=== PATIENT | male | born 1960 | race Caucasian/White ===

== ENCOUNTER 2018-01-25 15:18 | Emergency (ER) | payer OTHER ==
[~2018-01-25] VITALS: Ht 175.3 cm; Wt 72.6 kg
[2018-01-25 15:21] VITALS: Ht 175.3 cm; Wt 72.6 kg
[2018-01-25 16:42] VITALS: BP 161/94
== END 2018-01-25 16:52 | disposition home or self-care (01) ==
LOC: ED 15:18
DX: G89.29 Other chronic pain (principal); M25.551 Pain in right hip; M87.059 Idiopathic aseptic necrosis of unspecified femur; I10 Essential (primary) hypertension

== ENCOUNTER 2018-07-12 11:38 | Emergency (ER) | payer OTHER ==
[~2018-07-12] VITALS: Ht 172.7 cm; Wt 72.6 kg
[2018-07-12 11:49] VITALS: Ht 172.7 cm; Wt 72.6 kg
[2018-07-12 15:17] VITALS: BP 126/66
== END 2018-07-12 15:17 | disposition home or self-care (01) ==
LOC: ED 11:38
DX: M25.551 Pain in right hip (principal); I10 Essential (primary) hypertension; V23.4XXA Motorcycle driver injured in collision with car, pick-up truck or van in traffic accident, initial encounter; Y93.55 Activity, bike riding; Y92.89 Other specified places as the place of occurrence of the external cause; Y99.8 Other external cause status

== ENCOUNTER 2019-02-10 06:28 | Emergency (ER) | payer OTHER ==
[~2019-02-10] VITALS: Ht 175.3 cm; Wt 76.8 kg
[2019-02-10 06:32] VITALS: Ht 175.3 cm; Wt 76.8 kg
[2019-02-10 08:57] VITALS: BP 142/98
== END 2019-02-10 08:57 | disposition home or self-care (01) ==
LOC: ED 06:28
DX: G89.29 Other chronic pain (principal); M25.551 Pain in right hip; I10 Essential (primary) hypertension; Z86.19 Personal history of other infectious and parasitic diseases

== ENCOUNTER 2019-05-01 04:18 | Emergency (ER) | payer OTHER ==
[~2019-05-01] VITALS: Ht 177.8 cm; Wt 74.8 kg
[2019-05-01 04:21] VITALS: Ht 177.8 cm; Wt 74.8 kg
[2019-05-01 04:52] VITALS: BP 133/90
== END 2019-05-01 04:52 | disposition home or self-care (01) ==
LOC: ED 04:18
DX: M25.551 Pain in right hip (principal); G89.29 Other chronic pain; M87.851 Other osteonecrosis, right femur; I10 Essential (primary) hypertension; M19.90 Unspecified osteoarthritis, unspecified site

== ENCOUNTER 2020-10-01 15:33 | Emergency (ER) | payer OTHER ==
[~2020-10-01] VITALS: Ht 177.8 cm; Wt 81.6 kg
[2020-10-01 16:36] LABS: BASOPHIL % 0.7 % (0-2); PLATELET COUNT 238 x10^3mcL (130-400)
[2020-10-01 16:37] LABS: RED CELL DISTRIBUTION WIDTH 15.1 % (11.5-14.5)
[2020-10-01 16:50] LABS: ALBUMIN 3.7 g/dL (3.4-5.0); BILIRUBIN TOTAL 1.1 mg/dL (0.20-1.00); CALCIUM 9.3 mg/dL (8.5-10.1); CREATININE SERUM 1.5 mg/dL (0.7-1.3); MAGNESIUM 2.1 mg/dL (1.8-2.4); TOTAL PROTEIN, SERUM 7.7 g/dL (6.4-8.2)
[2020-10-01 16:57] LABS: POTASSIUM SERUM 2.9 mmol/L (3.5-5.1)
[2020-10-01 20:15] VITALS: BP 136/96
== END 2020-10-01 20:15 | disposition home or self-care (01) ==
LOC: ED 15:33
PROVIDERS: Emergency Medicine
DX: E87.6 Hypokalemia (principal); R55 Syncope and collapse; F10.129 Alcohol abuse with intoxication, unspecified; M25.551 Pain in right hip; G89.29 Other chronic pain; I10 Essential (primary) hypertension
CPT/HCPCS: G0480; J2270; J2405; J7030